=== PATIENT | female | born 1980 | race Caucasian/White ===

== ENCOUNTER 2018-12-05 13:51 | Emergency (ER) | payer SELFPAY ==
[~2018-12-05] VITALS: Ht 167.6 cm; Wt 79.7 kg
[2018-12-05 13:52] VITALS: BP 110/59; PULSE 81; RESP 17; Ht 167.6 cm; Wt 79.7 kg
[2018-12-05] MEDS ORDERED: IBUP-1542 PO (16:42)
[2018-12-05] MEDS ORDERED: CYCL10TA7 PO (16:42)
--- NOTE | 2018-12-05 17:24 | ERD ---
ER Documentation Chief Complaint Chief Complaint RIB PAIN, BACK PAIN S/P GLF AT WORK YESTERDAY HPI History of Present Illness: 38-year-old female who denies a past medical history coming in today due to complaint of left rib pain, low back, paraspinal neck pain pain after a fall at work yesterday. Patient denies any other associated symptoms. Patient denies loss of consciousness or head injury. At home pharmacological/nonpharmacological treatment for symptoms: Denies Denies social concerns; Denies recent foreign travel ROS All systems reviewed and are negative except as per history of present illness. Medications Home Meds Active Scripts Ibuprofen* (Motrin*) 600 Mg Tab, 600 MG PO Q6H PRN for PAIN AND OR ELEVATED TEMP, #30 TAB Prov:ARY MOCTEZUMA NP 12/05/18 Cyclobenzaprine Hcl* (Cyclobenzaprine Hcl*) 10 Mg Tablet, 10 MG PO TID for MUSCLE SPASM/MUSCLE PAIN, #15 TAB Prov:ARY MOCTEZUMA NP 12/05/18 Allergies Allergies: Coded Allergies: No Known Allergy (Unverified , 12/05/18) PMhx/Soc Medical and Surgical Hx: pt denies Medical Hx, pt denies Surgical Hx Hx Alcohol Use: No Hx Substance Use: No Smoking Status: Never smoker FmHx Family History: coronary disease Physical Exam Vitals Vital Signs Date Temp Pulse Resp B/P (MAP) Pulse Ox O2 O2 Flow FiO2 Time Delivery Rate 12/05/18 98.5 81 17 110/59 99 13:52 (76) Physical Exam Const: No acute distress, afebrile Head: Atraumatic Eyes: Normal Conjunctiva ENT: Normal External Ears, Nose and Mouth. Neck: Full range of motion. No meningismus. Paraspinal muscle tenderness. No step-offs. Resp: Clear to auscultation bilaterally Cardio: Regular rate and rhythm, no murmurs. No chest wall tenderness. Tenderness to palpation to left ribs, no deformity, no ecchymosis. Abd: Soft, non tender, non distended. No guarding, no masses, no rigidity Skin: No petechiae or rashes Back: No midline or flank tenderness Ext: No cyanosis, or edema Neur: Awake and alert x3, speaking in clear sentences, no focal deficits or facial asymmetry Psych: Normal Mood and Affect Results 24 hrs Laboratory Tests Test 12/05/18 15:14 POC Beta HCG, Qualitative NEGATIVE Procedures/MDM ED COURSE: ED course includes a thorough examination and history. The patient was stable throughout ED course. I kept the patient and/or family informed of laboratory and diagnostic imaging results throughout the ED course. DIAGNOSTIC IMAGING: Read by radiologist. Cervical x-ray showing: IMPRESSION: Straightening of the cervical lordosis. .César Tavarez MD, MD Date Time Electronically viewed and signed by .César Tavarez MD, on 12/05/2018 16:02 Left rib series showing: IMPRESSION: Unremarkable left rib cage x-ray series. RPTAT: HH .Yris Lim MD, Date Time Electronically viewed and signed by .Yris Lim MD, MD on 12/05/2018 16:18 PROCEDURES: None. MEDICAL DECISION MAKING: Low suspicion for life-threatening medical emergency. Otherwise healthy patient presenting with constellation of symptoms likely representing rib contusion, cervical sprain/muscle spasm secondary to fall as characterized by history, physical exam findings, radiology findings. Patient reassessment @1644: Results discussed. Patient hemodynamically stable. No respiratory distress, otherwise relatively well appearing and nontoxic. Disposition given. Patient educated on diagnoses, prescriptions, follow-up care, return precautions. Strict return precautions given for worsening condition; questions answered discharge. Patient verbalizes understanding of discharge instructions. PRESCRIPTIONS FOR HOME: Ibuprofen, cyclobenzaprine DISPOSITION: DISCHARGE At this time, patient is stable for discharge and outpatient management. I have instructed the patient to follow-up with his/her primary care physician in 1-2 days. I have discussed with the patient the possibility of needing to see a specialist for further workup and imaging studies if symptoms persist. I have instructed the patient to promptly return to the ER for any new or worsening symptoms including increased pain, fever, nausea, vomiting, weakness or LOC. The patient and/or family expressed understanding of and agreement with this plan. All questions were answered. Home care instructions were provided. DISCLAIMER: Inadvertent spelling and grammatical errors are likely due to EHR/dictation software use and do not reflect on the overall quality of patient care. Also, please note that the electronic time recorded on this note does not necessarily reflect the actual time of the patient encounter. Departure Diagnosis: Primary Impression: Cervical sprain Additional Impressions: Rib contusion Fall Condition: Stable Patient Instructions: Muscle Spasm, Neck Sprain/Strain, Rib Contusion [facility] Usted se rogers hecho un examen mdico de control que le indica que no est en esvin condicin que requiera tratamiento urgente en el Departamento de Emergencia. Un estudio ms profundo y el tratamiento de gupta condicin pueden esperar sin ningn riesgo hasta que usted sea atendida/o en el consultorio de gupta mdico o esvin clnica. Es responsabilidad suya arreglar esvin rodri para el seguimiento del rosendo. MANEJO DE CONDICIONES NO URGENTES EN EL FUTURO 1) Si usted tiene un mdico de atencin primaria: Usted debera llamar a gupta mdico de atencin primaria antes de venir al departamento de emergencia. Despus de las horas de consultorio, gupta doctor o gupta asociado/a est disponible por telfono. El mdico o enfermero de eun en el servicio telefnico puede asesorarle por roxanne medio para atender el problema, o rosendo contrario se puede programar esvin rodri. 2) Si usted no tiene un mdico de atencin primaria: Llame al mdico o clnica de referencia que aparece abajo maxine las horas de consultorio para hacer esvin rodri para que le vean. CLINICAS: [facility] 934 [phone] [address] [facility] 965 [phone] [address] [facility] 945 [phone] [address] [facility]. [facility] [phone] [address] [facility]. [place] [id number] [phone] [facility]. [phone] [address] [facility]. [facility] () Usted se rogers hecho un examen mdico de control que le indica que no est en esvin condicin que requiera tratamiento urgente en el Departamento de Emergencia. Un estudio ms profundo y el tratamiento de gupta condicin pueden esperar sin ningn riesgo hasta que usted sea atendida/o en el consultorio de gupta mdico o esvin clnica. Es responsabilidad suya arreglar esvin rodri para el seguimiento del rosendo. MANEJO DE CONDICIONES NO URGENTES EN EL FUTURO 1) Si usted tiene un mdico de atencin primaria: Usted debera llamar a gupta mdico de atencin primaria antes de venir al departamento de emergencia. Despus de las horas de consultorio, gupta doctor o gupta asociado/a est disponible por telfono. El mdico o enfermero de eun en el servicio telefnico puede asesorarle por roxanne medio para atender el problema, o rosendo contrario se puede programar esvin rodri. 2) Si usted no tiene un mdico de atencin primaria: Llame al mdico o condado institucions de referencia que aparece abajo maxine las horas de consultorio para hacer esvin rodri para que le vean. SI USTED NO PUEDE PAGAR PARA KEARA UN MEDICO puede ir a: [facility] [address] [place] [address] [facility] [address] [place] [address] [facility] [address] [place] [address] [facility] [address] [address] Additional Instructions: Google Translate utilizado para la traduccin de las siguientes lneas, por favor, disculpe los errores. Muchas rigoberto por permitirnos participar en gupta cuidado. Gupta jenn y seguridad es nuestra principal prioridad en [facility]. Es importante leer todas las instrucciones de paulo y la educacin que se proporcionan en gupta paquete de paulo. Llame a gupta mdico de atencin primaria MAANA para esvin rodri maxine los prximos 2 a 4 hill y lleve toda la informacin y los medicamentos recetados. Llene las recetas y siga exactamente las instrucciones de la etiqueta. Si los sntomas empeoran y gupta proveedor no est disponible, regrese inmediatamente al Departamento de Emergencias. ----- Google Translate used for translation of following lines, please excuse errors. Thank you very much for allowing us to participate in your care. Your health and safety is our top priority at [facility]. It is important to read all discharge instructions and education provided in your discharge packet. Call your primary care doctor TOMORROW for an appointment during the next 2-4 days and bring all the information and medications prescribed. Have prescriptions filled and follow precisely the directions on the label. If the symptoms get worse and your provider is unavailable, return to the Emergency Department immediately. ARY MOCTEZUMA NP Dec 05, 2018 17:24
== END 2018-12-05 17:01 | disposition home or self-care (01) ==
LOC: FTE 13:51
DX: S13.4XXA Sprain of ligaments of cervical spine, initial encounter (principal); S20.212A Contusion of left front wall of thorax, initial encounter; W19.XXXA Unspecified fall, initial encounter; Y92.89 Other specified places as the place of occurrence of the external cause
CPT/HCPCS: 71100; 72050; 81025